=== PATIENT | female | born 1950 | race Asian ===

== ENCOUNTER 2023-09-11 04:11 | Day surgery (SDC) | payer OTHER ==
[2023-09-10 12:37] VITALS: BMI 25.4
[2023-09-11 08:17] LABS: INR 1.09 (0.83-1.09); PROTHROMBIN TIME (PATIENT) 12.6 SEC (9.7-13.0)
[2023-09-11 08:20] LABS: ACTIVATED PTT 28.5 SECONDS (25.2-36.5)
[2023-09-11] MEDS ORDERED: oxyCODONE HCL 5 MG TABLET PO PRN (09:14)
[2023-09-11] MEDS ORDERED: PROMETHAZINE HCL 25 MG/1 ML VIAL IVPB PRN (09:14)
[2023-09-11] MEDS ORDERED: ONDANSETRON 4 MG/2 ML VIAL IVPUSH PRN (09:14)
[2023-09-11] MEDS ORDERED: SODIUM CHLORIDE 1,000 ML IV SCH (09:15)
[2023-09-11] MEDS ORDERED: BUPIVACAINE HCL/PF 0.5% (5MG/ML) 10 ML VIAL ONE (09:27)
[2023-09-11] MEDS ORDERED: FENTANYL CITRATE/PF 50 MCG/ML VIAL ONE ×2 (09:32→11:08)
[2023-09-11] MEDS ORDERED: MIDAZOLAM HCL 2 MG/2 ML SINGLE DOSE VIAL ONE (09:32)
[2023-09-11] MEDS ORDERED: ROCURONIUM BROMIDE 50 MG/5 ML SYRINGE ONE (09:32)
[2023-09-11] MEDS ORDERED: PROPOFOL 20 ML ONE (09:32)
[2023-09-11] MEDS ORDERED: LIDOCAINE HCL/PF 2% SDV 5ML VIAL ONE (09:33)
[2023-09-11] MEDS ORDERED: ceFAZolin SODIUM 1 GM VIAL ONE (09:34)
[2023-09-11] MEDS ORDERED: ceFAZolin SODIUM 1 GM VIAL IVPB ONE (10:01)
[2023-09-11] MEDS ORDERED: METOCLOPRAMIDE HCL INJECTION 10 MG/2 ML VIAL ONE (10:11)
[2023-09-11] MEDS ORDERED: ONDANSETRON 4 MG/2 ML VIAL ONE (10:11)
[2023-09-11] MEDS ORDERED: HEPARIN NA (PORCINE) 1,000 UNITS/ML 10ML M-D VIAL SQ ONE (10:12)
[2023-09-11] MEDS ORDERED: BUPIVACAINE HCL/PF 0.5% (5MG/ML) 10 ML VIAL IJ ONE (10:15)
[2023-09-11] MEDS ORDERED: ePHEDrine SULFATE 50 MG/1 ML AMPULE ONE (10:18)
[2023-09-11] MEDS ORDERED: SUGAMMADEX SODIUM 200 MG/2 ML VIAL ONE (10:42)
[2023-09-11] MEDS ORDERED: ACETAMINOPHEN 1000 MG/100 ML BAG IVPB ONE (11:16)
[2023-09-11 12:26] VITALS: PULSE 61; TEMP 97
[2023-09-11 12:36] VITALS: RESP 18
[2023-09-11] MEDS ORDERED: oxyCODONE HCL 5 MG TABLET ONE (13:26)
[2023-09-11 13:52] VITALS: BP 111/47
== END 2023-09-11 14:00 | disposition home or self-care (01) ==
LOC: JASU-SURG 04:11
PROVIDERS: ATTEND Surgery
PROC: 0WHG43Z Insertion of Infusion Device into Peritoneal Cavity, Percutaneous Endoscopic Approach (ICD-10-PCS; principal; 2023-09-11 10:00)
DX: I13.11 Hypertensive heart and chronic kidney disease without heart failure, with stage 5 chronic kidney disease, or end stage renal disease (principal); E11.22 Type 2 diabetes mellitus with diabetic chronic kidney disease; N18.6 End stage renal disease; Z99.2 Dependence on renal dialysis; Z79.4 Long term (current) use of insulin; K66.0 Peritoneal adhesions (postprocedural) (postinfection)
CPT/HCPCS: 36415; 82010; 82962; 85610; 85730; 94760; C1750; J1644

== ENCOUNTER 2025-06-23 15:08 | Inpatient (IN) | payer OTHER ==
[2025-06-23] MEDS ORDERED: FUROSEMIDE 40 MG/4 ML INJECTABLE VIAL ONE (15:56)
[2025-06-23 15:57] LABS: ABSOLUTE IMMATURE GRANULOCYTES 0.10 x10^3/uL (0.0-0.031); BASOPHILS # 0.03 x10^3/uL (0.01-0.08); BG HCT 28.0 % (32.4-45.2); EOSINOPHIL % 0.6 % (0.7-5.8); EOSINOPHILS # 0.07 x10^3/uL (0.04-0.36); MCHC 32.8 g/dl (32.2-35.5); MEAN CELL VOLUME 95.1 fl (79.4-94.8); MEAN PLT VOLUME 10.6 fl (9.4-12.3); MONOCYTE # 0.83 x10^3/uL (0.24-0.86); MONOCYTE % 7.5 % (4.7-12.5); RDW 12.8 % (12.4-16.6); VENOUS BASE EXCESS -2.1 mmol/L (-2-2); VENOUS O2 SATURATION 60.6 % (70-80); VENOUS PCO2 38.4 mmHg (38-52); VENOUS PH 7.388 (7.310-7.410)
[2025-06-23] MEDS: FUROSEMIDE 40 MG/4 ML INJECTABLE VIAL IVPUSH ONE ×2 (16:12→22:09)
[2025-06-23 16:26] LABS: GLUCOSE,RANDOM 287.0 mg/dL (74-106); TOT PROT 5.8 g/dl (6.4-8.2)
[2025-06-23 16:27] LABS: CO2 22.0 mmol/L (21-32)
[2025-06-23 16:29] LABS: ALK PHOS 98.0 U/L (40-150)
[2025-06-23 16:32] LABS: CREATININE 7.21 mg/dL (0.55-1.3); SGOT/AST 26.0 U/L (5-34); SGPT/ALT 13.0 U/L (0-55)
[2025-06-23 16:37] LABS: HCV DIAGNOSTIC IN-HOUSE W/RFLX NON-REACTIVE (NONREACTIVE)
[2025-06-23 16:38] LABS: HIV INTERPRETATION NEGATIVE (NEGATIVE)
[2025-06-23 18:01] LABS: N-TERMINAL BNP 59382.9 pg/mL (0-299.9)
[2025-06-23] MEDS ORDERED: amLODIPine BESYLATE 5 MG TABLET (FP) ONE (19:49)
[2025-06-23] MEDS: amLODIPine BESYLATE 5 MG TABLET (FP) PO ONE (19:51)
[2025-06-23] MEDS ORDERED: NITROGLYCERIN 2% OINTMENT - 1GM PACKET TD ONE (21:18)
[2025-06-23] MEDS: LOSARTAN POTASSIUM 50 MG TABLET PO SCH (23:22)
[2025-06-23] MEDS: ROSUVASTATIN CA 10 MG TABLET PO SCH (23:22)
[2025-06-23] MEDS: NEBIVOLOL 10 MG TABLET (FP) PO SCH (23:46)
[2025-06-24] MEDS ORDERED: PERITONEAL DIALYSIS 2.5% SOLN 2,500 ML IP SCH ×3 (00:30→21:00)
[2025-06-24] MEDS: SODIUM ZIRCONIUM CYCLOSILICATE (LOKELMA) 5 GM PACKET PO ONE (01:05)
[2025-06-24] MEDS: PERITONEAL DIALYSIS 2.5% SOLN 2,500 ML IP SCH (01:53)
[2025-06-24] MEDS: INSULIN ASPART SLIDING SCALE (NOVOLOG) 1 VIAL SQ SCH (06:09)
[2025-06-24] MEDS: TORSEMIDE 100 MG TABLET PO SCH (06:09)
[2025-06-24] MEDS: HEPARIN NA (PORCINE) 5,000 UNITS/ML 1ML VIAL SQ SCH (06:10)
[2025-06-24 08:43] LABS: ABSOLUTE IMMATURE GRANULOCYTES 0.08 x10^3/uL (0.0-0.031); BASOPHILS # 0.01 x10^3/uL (0.01-0.08); EOSINOPHIL % 0.1 % (0.7-5.8); EOSINOPHILS # 0.01 x10^3/uL (0.04-0.36); MCHC 32.6 g/dl (32.2-35.5); MEAN CELL VOLUME 95.1 fl (79.4-94.8); MEAN PLT VOLUME 10.5 fl (9.4-12.3); MONOCYTE # 0.85 x10^3/uL (0.24-0.86); MONOCYTE % 9.2 % (4.7-12.5); RDW 12.4 % (12.4-16.6)
[2025-06-24] MEDS: CLOPIDOGREL BISULFATE 75 MG TABLET (FP) PO SCH (09:15)
[2025-06-24] MEDS: amLODIPine BESYLATE 5 MG TABLET (FP) PO SCH (09:15)
[2025-06-24] MEDS: RANOLAZINE E.R. 500 MG TABLET (FP) PO SCH (09:15)
[2025-06-24] MEDS: CALCITRIOL 0.25 MCG CAPSULE (FP) PO SCH (09:16)
[2025-06-24] MEDS: VITAMIN B COMP W-C 1 EA TABLET (NEPHRO-VITE) PO SCH (09:16)
[2025-06-24 09:37] LABS: GLUCOSE,RANDOM 266 mg/dL (74-106)
[2025-06-24 09:38] LABS: TOT PROT 5.2 g/dl (6.4-8.2)
[2025-06-24 09:39] LABS: CO2 24 mmol/L (21-32)
[2025-06-24 09:40] LABS: ALK PHOS 90 U/L (40-150)
[2025-06-24 09:43] LABS: SGOT/AST 15 U/L (5-34); SGPT/ALT 10 U/L (0-55)
[2025-06-24 09:44] LABS: CREATININE 7.94 mg/dL (0.55-1.3)
[2025-06-24] MEDS ORDERED: GENTAMICIN SO4 0.1% TOPICAL OINTMENT 15 GM/TUBE TUBE TP SCH (10:00)
[2025-06-24] MEDS: FUROSEMIDE 40 MG/4 ML INJECTABLE VIAL IVPUSH ONE (11:15)
[2025-06-24] MEDS: GENTAMICIN SO4 0.1% TOPICAL OINTMENT 15 GM/TUBE TUBE TP SCH (11:15)
[2025-06-24] MEDS: MAGNESIUM SULFATE IN WATER 2 GM/50 ML IVPB IVPB ONE (11:40)
[2025-06-24] MEDS: SODIUM ZIRCONIUM CYCLOSILICATE (LOKELMA) 5 GM PACKET PO SCH (11:42)
[2025-06-24] MEDS: LACTULOSE 20 GM/30 ML UDC (FOR ORAL USE ONLY) PO ONE (12:03)
[2025-06-24] MEDS ORDERED: HEPARIN IP ONE (15:00)
[2025-06-24] MEDS ORDERED: PERITONEAL DIALYSIS 4.25% IP ONE (15:00)
[2025-06-24] MEDS: PERITONEAL DIALYSIS 4.25% IP ONE (15:30)
[2025-06-24] MEDS: HEPARIN IP ONE (15:30)
[2025-06-24 18:34] VITALS: BMI 24.5
[2025-06-24] MEDS ORDERED: PERITONEAL DIALYSIS 4.25% SOL 2,500 ML IP ONE (20:00)
[2025-06-24] MEDS: PERITONEAL DIALYSIS 2.5% IP SCH (21:12)
[2025-06-24] MEDS: DOCUSATE SODIUM 100 MG CAPSULE (FP) PO SCH (21:33)
[2025-06-25 08:54] LABS: ABSOLUTE IMMATURE GRANULOCYTES 0.04 x10^3/uL (0.0-0.031); BASOPHILS # 0.02 x10^3/uL (0.01-0.08); EOSINOPHIL % 4.0 % (0.7-5.8); EOSINOPHILS # 0.34 x10^3/uL (0.04-0.36); MCHC 32.9 g/dl (32.2-35.5); MEAN CELL VOLUME 94.2 fl (79.4-94.8); MEAN PLT VOLUME 10.1 fl (9.4-12.3); MONOCYTE # 0.86 x10^3/uL (0.24-0.86); MONOCYTE % 10.2 % (4.7-12.5); RDW 12.7 % (12.4-16.6)
[2025-06-25] MEDS: amLODIPine BESYLATE 10 MG TABLET (FP) PO SCH (09:22)
[2025-06-25 09:30] LABS: GLUCOSE,RANDOM 142.0 mg/dL (74-106)
[2025-06-25 09:31] LABS: TOT PROT 5.4 g/dl (6.4-8.2)
[2025-06-25 09:32] LABS: CO2 27.0 mmol/L (21-32)
[2025-06-25 09:33] LABS: ALK PHOS 91.0 U/L (40-150)
[2025-06-25 09:36] LABS: CREATININE 7.03 mg/dL (0.55-1.3); SGOT/AST 21.0 U/L (5-34); SGPT/ALT 12.0 U/L (0-55)
[2025-06-25] MEDS: SODIUM ZIRCONIUM CYCLOSILICATE (LOKELMA) 5 GM PACKET PO SCH (14:11)
[2025-06-25] MEDS: FUROSEMIDE 40 MG/4 ML INJECTABLE VIAL IVPUSH ONE (19:07)
[2025-06-25] MEDS: MELATONIN 5 MG TABLETS PO ONE (22:53)
[2025-06-26 07:42] LABS: ABSOLUTE IMMATURE GRANULOCYTES 0.04 x10^3/uL (0.0-0.031); BASOPHILS # 0.03 x10^3/uL (0.01-0.08); EOSINOPHIL % 6.1 % (0.7-5.8); EOSINOPHILS # 0.46 x10^3/uL (0.04-0.36); MCHC 32.6 g/dl (32.2-35.5); MEAN CELL VOLUME 94.2 fl (79.4-94.8); MEAN PLT VOLUME 9.7 fl (9.4-12.3); MONOCYTE # 0.71 x10^3/uL (0.24-0.86); MONOCYTE % 9.4 % (4.7-12.5); RDW 12.7 % (12.4-16.6)
[2025-06-26 08:28] LABS: GLUCOSE,RANDOM 216.0 mg/dL (74-106); TOT PROT 5.5 g/dl (6.4-8.2)
[2025-06-26 08:29] LABS: CO2 25.0 mmol/L (21-32)
[2025-06-26 08:31] LABS: ALK PHOS 95.0 U/L (40-150)
[2025-06-26 08:33] LABS: SGOT/AST 21.0 U/L (5-34); SGPT/ALT 12.0 U/L (0-55)
[2025-06-26 08:34] LABS: CREATININE 6.48 mg/dL (0.55-1.3)
[2025-06-27 08:50] LABS: ABSOLUTE IMMATURE GRANULOCYTES 0.03 x10^3/uL (0.0-0.031); BASOPHILS # 0.03 x10^3/uL (0.01-0.08); EOSINOPHIL % 4.3 % (0.7-5.8); EOSINOPHILS # 0.32 x10^3/uL (0.04-0.36); MCHC 33.1 g/dl (32.2-35.5); MEAN CELL VOLUME 92.7 fl (79.4-94.8); MEAN PLT VOLUME 9.8 fl (9.4-12.3); MONOCYTE # 0.66 x10^3/uL (0.24-0.86); MONOCYTE % 9.0 % (4.7-12.5); RDW 12.3 % (12.4-16.6)
[2025-06-27 09:35] LABS: TOT PROT 5.2 g/dl (6.4-8.2)
[2025-06-27 09:36] LABS: CO2 27.0 mmol/L (21-32)
[2025-06-27 09:37] LABS: ALK PHOS 86.0 U/L (40-150); GLUCOSE,RANDOM 242.0 mg/dL (74-106)
[2025-06-27 09:40] LABS: CREATININE 5.91 mg/dL (0.55-1.3); SGOT/AST 18.0 U/L (5-34); SGPT/ALT 10.0 U/L (0-55)
[2025-06-27] MEDS: ONDANSETRON 4 MG/2 ML VIAL IVPUSH PRN (12:08)
[2025-06-27] MEDS: POTASSIUM CHLORIDE TABS 20 MEQ TABLET.ER (FP) PO SCH (21:54)
[2025-06-28 07:49] LABS: MCHC 32.7 g/dl (32.2-35.5); MEAN CELL VOLUME 94.0 fl (79.4-94.8); MEAN PLT VOLUME 9.6 fl (9.4-12.3); RDW 12.5 % (12.4-16.6)
[2025-06-28 08:20] LABS: GLUCOSE,RANDOM 240.0 mg/dL (74-106); TOT PROT 5.6 g/dl (6.4-8.2)
[2025-06-28 08:22] LABS: CO2 28.0 mmol/L (21-32)
[2025-06-28 08:23] LABS: ALK PHOS 91.0 U/L (40-150)
[2025-06-28 08:26] LABS: CREATININE 5.63 mg/dL (0.55-1.3); SGOT/AST 19.0 U/L (5-34); SGPT/ALT 14.0 U/L (0-55)
[2025-06-28] MEDS: NYSTATIN 500,000 UNITS/5 ML SUSPENSION PO SCH (13:10)
[2025-06-28] MEDS ORDERED: NYSTATIN 500,000 UNITS/5 ML SUSPENSION PO SCH (18:00)
[2025-06-28] MEDS: HYDROCORTISONE ACETATE 25 MG/SUPP.RECT RC SCH (21:51)
[2025-06-28] MEDS: SENNOSIDES 8.8 MG/5 ML SYRUP PO ONE (23:03)
[2025-06-29 07:24] LABS: ABSOLUTE IMMATURE GRANULOCYTES 0.19 x10^3/uL (0.0-0.031); BASOPHILS # 0.04 x10^3/uL (0.01-0.08); EOSINOPHIL % 4.3 % (0.7-5.8); EOSINOPHILS # 0.32 x10^3/uL (0.04-0.36); MCHC 32.9 g/dl (32.2-35.5); MEAN CELL VOLUME 94.2 fl (79.4-94.8); MEAN PLT VOLUME 9.5 fl (9.4-12.3); MONOCYTE # 0.81 x10^3/uL (0.24-0.86); MONOCYTE % 10.9 % (4.7-12.5); RDW 12.6 % (12.4-16.6)
[2025-06-29 07:50] LABS: TOT PROT 5.3 g/dl (6.4-8.2)
[2025-06-29 07:51] LABS: CO2 26.0 mmol/L (21-32)
[2025-06-29 07:52] LABS: ALK PHOS 90.0 U/L (40-150); GLUCOSE,RANDOM 271.0 mg/dL (74-106)
[2025-06-29 07:55] LABS: SGOT/AST 18.0 U/L (5-34); SGPT/ALT 13.0 U/L (0-55)
[2025-06-29 07:56] LABS: CREATININE 5.54 mg/dL (0.55-1.3)
[2025-06-29 10:41] VITALS: RESP 16
[2025-06-29] MEDS: MAGNESIUM OXIDE 400 MG TABLET (FP) PO ONE (14:01)
[2025-06-29 15:15] VITALS: BP 131/59; PULSE 57; TEMP 98.1
== END 2025-06-29 17:21 | disposition home or self-care (01) | DRG 291 ==
LOC: JER 15:08 → JERBED 18:12 → J4S 21:36
PROVIDERS: ADMIT Internal Medicine; ATTEND Student in an Organized Health Care Education/Training Program
DX: I13.2 Hypertensive heart and chronic kidney disease with heart failure and with stage 5 chronic kidney disease, or end stage renal disease (principal); I50.33 Acute on chronic diastolic (congestive) heart failure; N18.6 End stage renal disease; J96.01 Acute respiratory failure with hypoxia; E87.1 Hypo-osmolality and hyponatremia; I16.1 Hypertensive emergency; I24.89 Other forms of acute ischemic heart disease; I25.10 Atherosclerotic heart disease of native coronary artery without angina pectoris; E11.22 Type 2 diabetes mellitus with diabetic chronic kidney disease; D63.8 Anemia in other chronic diseases classified elsewhere; I25.2 Old myocardial infarction; E87.5 Hyperkalemia; E83.39 Other disorders of phosphorus metabolism; K64.4 Residual hemorrhoidal skin tags
CPT/HCPCS: 36415; 71045-TC-FY; 74018-TC-FY; 80053; 82803; 82962; 83036; 83735; 83880; 84100; 84484; 85025; 85027; 85379; 86803; 87081; 87389; 87637-QW; 93005; 93010; 93306-TC; 97116-GP; 97161-GP; 99285-25